=== PATIENT | female | born 1935 | race Caucasian/White ===

== ENCOUNTER 2022-12-02 12:13 | Emergency (ER) | payer MEDICARE, OTHER, MEDICAID ==
[2022-12-02 12:22] VITALS: BP 187/80; PULSE 63
[2022-12-02] MEDS ORDERED: Albuterol/Ipratropium 3.0-0.5 MG/3 ML Neb Soln NEB ONE ×2 (12:35→14:09)
[2022-12-02 13:34] LABS: ESTIMATED GFR 71 mL/min (>60)
[2022-12-02] MEDS ORDERED: Azithromycin 250 MG Tab PO ONE (15:24)
[2022-12-02 15:51] LABS: CORONAVIRUS COVID-19 NAA NEGATIVE (NEGATIVE)
== END 2022-12-02 15:30 | disposition home or self-care (01) ==
LOC: JD.ED 12:13
DX: J45.901 Unspecified asthma with (acute) exacerbation (principal); I10 Essential (primary) hypertension; Z88.5 Allergy status to narcotic agent; Z88.8 Allergy status to other drugs, medicaments and biological substances; Z20.822 Contact with and (suspected) exposure to COVID-19
CPT/HCPCS: 0241U; 36415; 71045; 80053; 83880; 85025; 86140; 94640; 99285; A9270; 93010; 99284; J7620-GY

== ENCOUNTER 2023-08-06 17:51 | Emergency (ER) | payer MEDICARE, OTHER, MEDICAID ==
[2023-08-06] MEDS ORDERED: Diphtheria,Pertussis(Acell),Tetanus Vaccine 0.5 ML Syringe IM ONE (18:43)
[2023-08-06] MEDS ORDERED: Amoxicillin 500 MG Cap PO ONE (19:23)
[2023-08-06 19:58] VITALS: BP 165/77; PULSE 90
== END 2023-08-06 19:55 | disposition home or self-care (01) ==
LOC: JD.ED 17:51
DX: S01.512A Laceration without foreign body of oral cavity, initial encounter (principal); S80.01XA Contusion of right knee, initial encounter; S60.051A Contusion of right little finger without damage to nail, initial encounter; I10 Essential (primary) hypertension; E11.9 Type 2 diabetes mellitus without complications; Z90.710 Acquired absence of both cervix and uterus; Z23 Encounter for immunization; W10.0XXA Fall (on)(from) escalator, initial encounter
CPT/HCPCS: 73560; 90471; 90715; 99283; A9270